=== PATIENT | male | born 1945 | race Caucasian/White ===

== ENCOUNTER 2022-02-07 11:52 | Outpatient (CLI) | payer OTHER | END 2022-02-07 11:53 | disposition home or self-care (01) | LOC: CSHCT 11:52 | PROVIDERS: ATTEND Otolaryngology Plastic Surgery within the Head & Neck | DX: H90.3 Sensorineural hearing loss, bilateral (principal); Z96.22 Myringotomy tube(s) status; H74.8X3 Other specified disorders of middle ear and mastoid, bilateral | CPT/HCPCS: 70480 ==

== ENCOUNTER 2022-05-02 10:53 | Outpatient (CLI) | payer OTHER ==
[2022-05-02 13:24] LABS: Anion Gap 15 mmol/L (10-20); BUN (Urea Nitrogen) 35 mg/dL (8.4-25.7); Calc. Creatinine Clearance 0 mL/min (70-130); Calcium 9.8 mg/dL (7.8-10.44); Carbon Dioxide 24 mmol/L (23-31); Chloride 106 mmol/L (98-107); Estimated GFR 44; Glucose 159 mg/dL (83-110); Potassium 4.6 mmol/L (3.5-5.1); Sodium 140 mmol/L (136-145)
== END 2022-05-02 10:54 | disposition home or self-care (01) ==
LOC: CSHLAB 10:53
PROVIDERS: ATTEND Otolaryngology Plastic Surgery within the Head & Neck
DX: Z01.818 Encounter for other preprocedural examination (principal); H65.21 Chronic serous otitis media, right ear; H92.11 Otorrhea, right ear
CPT/HCPCS: 80048; 85014; 85018; 93005; 93010

== ENCOUNTER 2022-05-07 09:08 | Day surgery (SDC) | payer OTHER ==
[2022-05-04 14:27] VITALS: BMI 25.7
[2022-05-07] MEDS ORDERED: oFLOXacin 0.3% Opth 5 ML BOT ONE (10:38)
[2022-05-07] MEDS ORDERED: Mupirocin 2% Ointment 22 GM Tube ONE (10:38)
[2022-05-07] MEDS ORDERED: EPINEPHrine 1 MG/ML AMP ONE (10:38)
[2022-05-07] MEDS ORDERED: CEFAZOLIN 1 GM VIAL ONE (10:39)
[2022-05-07] MEDS ORDERED: PROPOFOL 20 ML ONE (10:58)
[2022-05-07] MEDS ORDERED: Midazolam HCl 2 mg/2 ml Vial ONE (10:59)
[2022-05-07] MEDS ORDERED: Lidocaine 1% PF 5 ML VIAL ONE (10:59)
[2022-05-07] MEDS ORDERED: Rocuronium Bromide 10 MG/ML (10ML VIAL) ONE (10:59)
[2022-05-07] MEDS ORDERED: Fentanyl 100 MCG/2 ML VIAL ONE ×2 (10:59→13:41)
[2022-05-07] MEDS ORDERED: Ondansetron PF 4 MG/2 ML Vial ONE (10:59)
[2022-05-07] MEDS ORDERED: Glycopyrrolate 0.2 MG/ML 5 ML SYRINGE ONE (11:36)
[2022-05-07] MEDS ORDERED: ePHEDrine Sulfate 50 MG/10 ML VIAL ONE (11:41)
== END 2022-05-07 14:50 | disposition home or self-care (01) ==
LOC: CSHSDC 09:08
PROVIDERS: ATTEND Otolaryngology Plastic Surgery within the Head & Neck
PROC: 099500Z Drainage of Right Middle Ear with Drainage Device, Open Approach (ICD-10-PCS; principal; 2022-05-07)
PROC: 0NB50ZZ Excision of Right Temporal Bone, Open Approach (ICD-10-PCS; principal; 2022-05-07)
DX: H65.21 Chronic serous otitis media, right ear (principal); H92.21 Otorrhagia, right ear
CPT/HCPCS: 88305; 93005; 93010; C1713; J0171; J0690; J2250; J2405; J2704; J3010; L8699

== ENCOUNTER 2022-07-26 13:02 | Outpatient (CLI) | payer OTHER | END 2022-07-26 13:03 | disposition home or self-care (01) | LOC: CSHCT 13:02 | PROVIDERS: ATTEND Otolaryngology Plastic Surgery within the Head & Neck | DX: H90.5 Unspecified sensorineural hearing loss (principal); H66.90 Otitis media, unspecified, unspecified ear; Z98.890 Other specified postprocedural states; H73.91 Unspecified disorder of tympanic membrane, right ear | CPT/HCPCS: 70480 ==